=== PATIENT | female | born 2000 | race Two or more races ===

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

== ENCOUNTER 2019-02-26 17:56 | Emergency (ER) | payer MEDICAID ==
[~2019-02-26] VITALS: Ht 157.5 cm; Wt 52.0 kg
[~2019-02-26 17:56] MED LIST: CEPH-368 PO; DOCU-131 PO; FERR324T5 PO; IBUP-1222 PO; LABE100T6 PO
[2019-02-26] MEDS ORDERED: MORPHINE SULFATE 4 MG/ML, 1ML ONE (18:04)
[2019-02-26] MEDS ORDERED: MORPHINE SULFATE 4 MG/ML, 1ML IVPush PRN (18:30)
[2019-02-26] MEDS ORDERED: SODIUM CHLORIDE FLUSH 10ML SYR IVF ONE (18:30)
[2019-02-26 18:50] LABS: BASOPHILS # (AUTO) 0.03 x10^3/uL (0-0.3); BASOPHILS % (AUTO) 0 % (0-1); EOSINOPHILS # (AUTO) 0.15 x10^3/uL (0-0.8); EOSINOPHILS % (AUTO) 2 % (1-7); LYMPHOCYTES # (AUTO) 4.07 x10^3/uL (1-6.1); LYMPHOCYTES % (AUTO) 46 % (22-44); MD NO; MEAN CORPUSCULAR HEMOGLOBIN 24.5 pg (27.0-34.8); MEAN CORPUSCULAR VOLUME 76.6 fL (80-100); MEAN PLATELET VOLUME 9.1 fL (7.4-10.4); MONOCYTES # (AUTO) 0.28 x10^3/uL (0-1.4); MONOCYTES % (AUTO) 3 % (2-9); NEUTROPHILS # (AUTO) 4.39 x10^3/uL (1.8-8.0); NEUTROPHILS % (AUTO) 49 % (42-75); PLATELET COUNT 267 x10^3/uL (130-400); RED BLOOD COUNT 5.32 x10^6/uL (3.82-5.3); RED CELL DISTRIBUTION WIDTH 16.8 % (9.6-15.2)
[2019-02-26 18:55] LABS: ALANINE AMINOTRANSFERASE 17 U/L (12-78); ANION GAP 11 mmol/L (5-15); CALCIUM 8.5 mg/dL (8.5-10.1); CHLORIDE 115 mmol/L (98-107); CREATININE 0.81 mg/dL (0.55-1.02)
--- NOTE | 2019-02-26 18:55 | NUR ---
PT REQUESTING TO GO TO THE BATHROOM. COMMODE AT BEDSIDE. BOYFRIEND IN ROOM. PT ADVISED NOT TO STAND OR WALK. BOYFRIEND ENCOURAGED TO PRESS CALL LIGHT FOR ANY NEEDS.
--- NOTE | 2019-02-26 18:57 | NUR ---
LATE NOTE 1810. PT STATES HASN'T HAD A BOWEL MOVEMENT IN 2 WEEKS. PT C/O GLOBAL ABD PAIN THAT IS TENDER TO THE TOUCH. PT ADMITS TO RARELY DRINKING WATER. PT FOUND BY EMS WITH BP OF 83/46 AND DIAPHORETIC. EMS IV ACCESS AND NS ADMIN. 15 MG OF KETAMINE GIVEN X 2. MD AT BEDSIDE TO AME.
[2019-02-26 18:59] LABS: ALKALINE PHOSPHATASE 66 U/L (45-117); BILIRUBIN,TOTAL 0.4 mg/dL (0.2-1.0); TOTAL PROTEIN 8.3 g/dL (6.4-8.2)
--- NOTE | 2019-02-26 19:29 | NUR ---
PT OFF COMMODE AND BACK TO BED. PT HAD LARGE BOWEL MOVEMENT AND STATES RELEIF OF SYMPTOMS.
--- NOTE | 2019-02-26 20:22 | NUR ---
MD IN ROOM TO REASSESS AND DISCUSS POC. VSS STABLE PT STATES PAIN IS AT A MINIMUM AND DOES NOT WANT ANY MORE PAIN MEDICATIONS.
[2019-02-26] MEDS ORDERED: OMNIPAQUE 350 MG/ML, 100ML BOTTLE ONE (20:23)
[2019-02-26 20:45] VITALS: BP 95/61
== END 2019-02-26 20:47 | disposition home or self-care (01) ==
LOC: ED 20:20
DX: K52.9 Noninfective gastroenteritis and colitis, unspecified (principal); K59.00 Constipation, unspecified; I10 Essential (primary) hypertension
CPT/HCPCS: 36415; 74177; 80053; 83690; 84703; 85025; 96374; 99284; J2270; Q9967

== ENCOUNTER 2020-02-21 16:19 | Emergency (ER) | payer MEDICAID ==
[~2020-02-21] VITALS: Ht 154.9 cm; Wt 58.1 kg
[2020-02-21 16:22] VITALS: BP 114/68
== END 2020-02-21 17:14 | disposition home or self-care (01) ==
LOC: ED 16:45
DX: S21.012D Laceration without foreign body of left breast, subsequent encounter (principal); I10 Essential (primary) hypertension; Z48.02 Encounter for removal of sutures; S21.011D Laceration without foreign body of right breast, subsequent encounter; X58.XXXD Exposure to other specified factors, subsequent encounter
CPT/HCPCS: 99281